=== PATIENT | female | born 1980 | race African-American/Black ===

== ENCOUNTER 2019-06-26 13:36 | Emergency (ER) | payer OTHER ==
[2019-06-26] MEDS ORDERED: CYCLOBENZAPRINE 10 MG TABLET PO STA (14:06)
[2019-06-26] MEDS ORDERED: HYDROcod/ACETAM 5/325 MG TABLET PO STA (14:06)
--- NOTE | 2019-06-26 14:08 | ED Physician Documentation ---
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 She is had progressive right-sided neck and shoulder pain then severe. No actual fall. 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 - Present Medications Home Medications: Ambulatory Orders Medication Instructions Recorded Confirmed Cyclobenzaprine [Flexeril] 10 mg PO TID PRN #20 tablet 06/26/19 Hydrocodone/Acetaminophen 1 - 2 each PO Q6H PRN #14 tablet 06/26/19 [Hydrocodon-Acetaminophen 5-325] - Allergies Allergies/Adverse Reactions: Allergies Allergy/AdvReac Type Severity Reaction Status Date / Time Penicillins Allergy Unknown Verified 06/26/19 13:57 promethazine [From Phenergan] Allergy Unknown Verified 06/26/19 13:57 codeine AdvReac Unknown Verified 06/26/19 13:57 latex AdvReac Unknown Verified 06/26/19 13:57 - Social History Does the pt smoke?: No Smoking Status: Never smoker ETOH Use: Wine - Immunizations Immunizations are current?: Yes PD ED PE NORMAL - Vitals Vital signs reviewed: Yes - General General: Alert and oriented X 3, No acute distress - HEENT HEENT: PERRL, EOMI - Neck Neck: No bony TTP, Other (She is holding the neck kind of rotated and is tender over the sternocleidomastoid and posterior shoulder musculature on the right.) - Extremities Extremities: Other (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 Symmetric sensation throughout the upper extremities.) - Neuro Neuro: Alert and oriented X 3, Normal speech Results - Vitals Vitals: Vital Signs - 24 hr 06/26/19 13:47 Temperature 37.0 C Heart Rate 101 H Respiratory 18 Rate Blood Pressure 133/94 H O2 Saturation 100 Oxygen O2 Source Room air PD MEDICAL DECISION MAKING - ED course ED course: 39-year-old woman with a neck and shoulder spasm. The mechanism is inconsistent with fracture as is the gradual onset. Cervical radiculopathy is considered given her history of same, but her cervical radiculopathy previously was on the other side, and she has no neurologic symptoms. Departure - Departure Disposition: Home, Self Care Clinical Impression: Muscle spasm of right shoulder, Neck muscle spasm Right shoulder strain Qualifiers: Encounter type: initial encounter Qualified Code(s): S46.911A - Strain of unspecified muscle, fascia and tendon at shoulder and upper arm level, right arm, initial encounter Condition: Good Record reviewed to determine appropriate education?: Yes Instructions: ED Spasm Muscle Prescriptions: Cyclobenzaprine [Flexeril] 10 mg PO TID PRN #20 tablet PRN Reason: Spasms Hydrocodone/Acetaminophen [Hydrocodon-Acetaminophen 5-325] 1 - 2 each PO Q6H PRN #14 tablet PRN Reason: pain Comments: Given the mechanism and the gradual onset this is consistent with a spasm of muscle, which we are treating you for. Return for new or worsening symptoms. Follow-up with your doctor as you are already planning to do. Forms: Activity restrictions
[2019-06-26 14:37] VITALS: BP 127/93
== END 2019-06-26 14:37 | disposition home or self-care (01) ==
LOC: ED 13:36
DX: M62.838 Other muscle spasm (principal); S46.911A Strain of unspecified muscle, fascia and tendon at shoulder and upper arm level, right arm, initial encounter; X58.XXXA Exposure to other specified factors, initial encounter; Y93.89 Activity, other specified; Y92.210 Daycare center as the place of occurrence of the external cause; Y99.0 Civilian activity done for income or pay
CPT/HCPCS: 99282; 99284; A9270

== ENCOUNTER 2019-07-22 13:41 | Emergency (ER) | payer OTHER ==
--- NOTE | 2019-07-22 14:58 | ED Physician Documentation ---
PD HPI BACK PAIN - Stated complaint Stated Complaint: BACK PX - Chief complaint Chief Complaint: Back Pain - History obtained from History obtained from: Patient - History of Present Illness Timing - onset: How many days ago (2-3 days of pain in mid to lower neck and upper thoracic area, with numbness today along lateral arms both sides. Has had prior neck surgery C5-6 and has some HNP of mid cervical discs on prior MRIs. Moved here recently and is getting aligned with neck specialist here, through PCP. and is having MRI cervical early August, already scheduled. Denies weakness of arms/hands.) Timing - details: Gradual onset, Still present, Waxing and waning Location: Upper (upper thoracic and then the cervical area pain.) Quality: Pain, Spasm, Aching Associated symptoms: Numbness (middle fingers right more than left, and had that with prior neck surgery, did not fully resolve. Is worse now though.). No: Fever, Weakness Contributing factors: Lifting Similar symptoms before: Diagnosis (prior neck HNPs with surgery C5-6 about a year ago, while stationed in [facility].) Recently seen: Clinic (seen by PCP recently with Rx Elisabet. 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 - Present Medications Home Medications: Ambulatory Orders Medication Instructions Recorded Confirmed Cyclobenzaprine [Flexeril] 10 mg PO TID PRN #20 tablet 06/26/19 Hydrocodone/Acetaminophen 1 - 2 each PO Q6H PRN #14 tablet 06/26/19 [Hydrocodon-Acetaminophen 5-325] Gabapentin 100 mg PO BID #30 capsule 07/22/19 Naproxen 500 mg PO BID #20 tablet 07/22/19 Oxycodone HCl/Acetaminophen 1 each PO Q6H PRN #20 tablet 07/22/19 [Percocet 5-325 mg Tablet] Tizanidine HCl 4 mg PO TID PRN #25 capsule 07/22/19 dexAMETHasone [Decadron] 4 mg PO DAILY #5 tablet 07/22/19 - Allergies Allergies/Adverse Reactions: Allergies Allergy/AdvReac Type Severity Reaction Status Date / Time Penicillins Allergy Unknown Verified 07/22/19 13:49 promethazine [From Phenergan] Allergy Unknown Verified 07/22/19 13:49 codeine AdvReac Unknown Verified 07/22/19 13:49 latex AdvReac Unknown Verified 07/22/19 13:49 - Social History Does the pt smoke?: No Smoking Status: Never smoker - Immunizations Immunizations are current?: Yes PD ED PE NORMAL - Vitals Vital signs reviewed: Yes - General General: Alert and oriented X 3, Well developed/nourished, Other (appears in significant pain) - Neck Neck: Supple, no meningeal sign, No adenopathy, Other (pain with some muscular tenderness in lower neck and some to upper thoracic paraspinal muscles. No rash nor sores. ) - Derm Derm: Normal color, Warm and dry, No rash - Neuro Neuro: Alert and oriented X 3, No motor deficit, Normal speech, Other (some decreased sensation to touch/sharp in lateral forearm and middle fingers right. ) Results - Vitals Vitals: Vital Signs - 24 hr 07/22/19 07/22/19 13:49 16:50 Temperature 36.7 C Heart Rate 76 72 Respiratory 20 14 Rate Blood Pressure 135/110 H 134/85 H O2 Saturation 97 98 Oxygen O2 Source Room air PD MEDICAL DECISION MAKING - ED course Complexity details: reviewed results (did not see value in plain imaging. She is scheduled for MRI neck in couple weeks. I do not see urgency in sooner at this time. ), re-evaluated patient (improved pain with IM meds. ), considered differential, d/w patient Departure - Departure Disposition: 01 Home, Self Care Clinical Impression: Neck pain, Cervical radiculitis Condition: Stable Record reviewed to determine appropriate education?: Yes Instructions: ED Cervical Radiculopathy Follow-Up: SATHISH TRINH [Primary Care Provider] - Prescriptions: dexAMETHasone [Decadron] 4 mg PO DAILY #5 tablet Gabapentin 100 mg PO BID #30 capsule Naproxen 500 mg PO BID #20 tablet Oxycodone HCl/Acetaminophen [Percocet 5-325 mg Tablet] 1 each PO Q6H PRN #20 tablet PRN Reason: pain Tizanidine HCl 4 mg PO TID PRN #25 capsule PRN Reason: Spasms Comments: Follow-up with your primary care. Continue with the plans for the MRI of the neck and neck specialist referral. Use anti-inflammatory of naproxen twice daily with food. Also Decadron steroid anti-inflammatory daily for 5 more days. Tizanidine muscle relaxant for spasms and stiffness as prescribed. Add Tylenol or oxycodone as needed for worse pain. Use mild stool softener so you do not get constipated with these. You could also start gabapentin (Neurontin) once or twice daily at a very low dose to try to help with some of the nerve pain. Discharge Date/Time: 07/22/19 17:35
[2019-07-22] MEDS ORDERED: HYDROmorphone 2 MG/ML VIAL IM STA (15:27)
[2019-07-22] MEDS ORDERED: CHERRY SYRUP 10 ML UDC PO ONE (15:27)
[2019-07-22] MEDS ORDERED: KETOROLAC 60 MG/2 ML VIAL IM STA (15:27)
[2019-07-22] MEDS ORDERED: DEXAMETHASONE 10 MG/ML VIAL PO STA (15:27)
[2019-07-22] MEDS ORDERED: methocarbamoL 500 MG TABLET PO STA (15:28)
[2019-07-22 16:50] VITALS: BP 134/85
== END 2019-07-22 17:35 | disposition home or self-care (01) ==
LOC: ED 13:41
DX: M54.2 Cervicalgia (principal); M54.12 Radiculopathy, cervical region
CPT/HCPCS: 96372; 99283; A9270; J1170

== ENCOUNTER 2019-08-04 08:47 | Outpatient (CLI) | payer OTHER ==
--- NOTE | 2019-08-04 10:42 | MRI Report ---
Reason: CERVICALGIA Procedure Date: 08/04/2019 Accession Number: [id number] / [id number] Procedure: MRI - Cervical Spine W/O CPT Code: Final Report FULL RESULT: EXAM: MRI CERVICAL SPINE WITHOUT CONTRAST EXAM DATE: 08/04/2019 09:27 AM. CLINICAL HISTORY: Cervicalgia. COMPARISONS: None. TECHNIQUE: Multiplanar, multisequence T1-weighted and fluid-sensitive sequences of the cervical spine without contrast. Other: None. FINDINGS: Neurologic Structures: The visualized posterior fossa structures are unremarkable. No signal abnormality in the visualized spinal cord. Alignment: No scoliosis or spondylolisthesis. Bone Marrow: No fractures or erosive changes. Metallic artifact seen from anterior instrument fusion at C5-C6. Interspace Levels/Facets: C1-C2: Arthritic changes are mild anteriorly. No stenosis. C2-C3: Unremarkable. C3-C4: Unremarkable. C4-C5: Mild broad-based disk bulge, no central or foraminal stenosis. There are slightly prominent facets. C5-C6: Surgery at this level. Mild central stenosis. Artifact from anterior compression plate. AP diameter of the canal is 7 mm. Severe left foraminal stenosis. Right neural foramen is normal. Series 801 image 17. C6-C7: Broad-based disk bulge is seen. Prominent facets. No central or foraminal stenosis. C7-T1: Unremarkable. Musculature: Normal. No edema or fatty atrophy. Other: The paravertebral and prevertebral soft tissues are normal. IMPRESSION: 1. Spinal cord and posterior fossa appear unremarkable. 2. C4-C5 shows a mild broad-based bulge, no central or foraminal stenosis. Slightly prominent facets. 3. C5-C6 shows surgery at this level with mild central stenosis. Metallic artifact anteriorly. Severe left foraminal stenosis. Moderate central stenosis. Right neural foramen is normal. 4. C6-C7 shows a broad-based disk bulge, prominent facets. No central or foraminal stenosis. RADIA
== END 2019-08-04 08:48 | disposition home or self-care (01) ==
LOC: DI 08:47
PROVIDERS: ATTEND Family Medicine
DX: M47.812 Spondylosis without myelopathy or radiculopathy, cervical region (principal); M48.02 Spinal stenosis, cervical region; Z98.1 Arthrodesis status; M50.821 Other cervical disc disorders at C4-C5 level
CPT/HCPCS: 72141

== ENCOUNTER 2020-07-15 10:28 | Outpatient (CLI) | payer OTHER ==
[2020-07-15] MEDS ORDERED: GADOBUTROL 15 MMOL/15 ML VIAL ONE (11:03)
[2020-07-15] MEDS ORDERED: GADOBUTROL 15 MMOL/15 ML VIAL IVP ONE (11:47)
--- NOTE | 2020-07-15 11:59 | MRI Report ---
PROCEDURE: Brain W/WO INDICATIONS: SPASMODIC TORTICOLLIS, ATAXIA CONTRAST: IV CONTRAST: Gadavist ml: 12 TECHNIQUE: Noncontrast axial T1 spin echo, axial T2 fast spin echo, sagittal and axial FLAIR, coronal T2 fast sp in echo, axial gradient echo, axial diffusion and ADC through the brain. After the administration of contrast, axial and coronal T1 spin echo with fat saturation through the brain. COMPARISON: None. FINDINGS: Image quality: Excellent. CSF spaces: Basal cisterns are patent. No extra-axial fluid collections. Ventricles are normal in size and shape. Brain: No midline shift. No intracranial bleeds or masses. No abnormal intracranial enhancement. There is cerebral volume loss for age. There is periventricular white matter chronic small vessel is chemic change. The brainstem appears normal. Diffusion-weighted images demonstrate no acute ischemi c insults. No chronic ischemic insults. Normal intravascular flow voids are present. Skull and face: Calvarial marrow is normal in signal. Orbits appear normal. Sinuses: Sinuses and mastoids appear clear. IMPRESSION: No acute or otherwise significant intracranial abnormality. Reviewed by: Thaddeus Gordillo MD on 07/15/2020 10:57 AM [facility] Approved by: Thaddeus Gordillo MD on 07/15/2020 10:57 AM [facility] Station ID: [id number]
== END 2020-07-15 10:29 | disposition home or self-care (01) ==
LOC: DI 10:28
PROVIDERS: ATTEND Student in an Organized Health Care Education/Training Program
DX: G24.3 Spasmodic torticollis (principal); R27.0 Ataxia, unspecified
CPT/HCPCS: 70553; A9585

== ENCOUNTER 2020-10-10 10:55 | Emergency (ER) | payer OTHER ==
[2020-10-10 11:50] LABS: BASOPHILS % (AUTO) 0.5 %; EOSINOPHILS # (AUTO) 0.1 10^3/uL (0.0-0.7); HCT - HEMATOCRIT 40.3 % (37.0-47.0); HGB - HEMOGLOBIN 13.3 g/dL (12.0-16.0); LYMPHOCYTES % (AUTO) 34.1 %; MEAN CORPUSCULAR HEMOGLOBIN 29.3 pg (27.0-31.0); MEAN CORPUSCULAR VOLUME 88.8 fL (81.0-99.0); MEAN PLATELET VOLUME 9.1 fL (7.9-10.8); MONOCYTES # (AUTO) 0.4 10^3/uL (0.0-1.0); NEUTROPHILS # (AUTO) 3.4 10^3/uL (1.5-6.6); NEUTROPHILS % (AUTO) 57.2 %; PLT - PLATELET COUNT 307 10^3/uL (130-450); RED BLOOD COUNT 4.54 10^6/uL (4.20-5.40); RED CELL DISTRIBUTION WIDTH 13.1 % (12.0-15.0)
[2020-10-10 12:04] LABS: ACETAMINOPHEN < 10 ug/mL (10-30); ALBUMIN 4.3 g/dL (3.2-5.5); ALBUMIN/GLOBULIN RATIO 1.2 (1.0-2.2); ALKALINE PHOSPHATASE 71 IU/L (42-121); ALT ALANINE AMINOTRANSFERASE 11 IU/L (10-60); AST ASPARTATE AMINOTRANSFERASE 20 IU/L (10-42); BILIRUBIN,TOTAL 0.8 mg/dL (0.2-1.0); BUN - BLOOD UREA NITROGEN 8 mg/dL (6-20); CALCIUM 9.4 mg/dL (8.5-10.3); CARBON DIOXIDE - CO2 27 mmol/L (21-32); CHLORIDE 104 mmol/L (101-111); ETOH - ETHANOL < 5.0 mg/dL; GFR - MDRD 75 (>89); GLUCOSE 106 mg/dL (70-100); LIPASE 18 U/L (22-51); POTASSIUM 4.7 mmol/L (3.5-5.0); SALICYLATE < 6.0 mg/dL; SODIUM 139 mmol/L (135-145); TOTAL PROTEIN 7.9 g/dL (6.7-8.2)
[2020-10-10] MEDS ORDERED: HYDROmorphone 1 MG/ML CARPUJECT IM STA (12:12)
--- NOTE | 2020-10-10 12:27 | ED Physician Documentation ---
History of Present Illness - Stated complaint Stated Complaint: MHE - Chief complaint Chief Complaint: MHE - Additonal information Additional information: 40-year-old female is brought to the emergency department for evaluation of suicidal ideation. She unfortunately has a longstanding history of chronic back neck and head pain after an accident in [place] many years ago that required surgical operation as well as plating. The patient had expressed to her that she wanted to take all her pills to end her life because she can no longer tolerate her chronic pain. In the room the patient is in a wheelchair. 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 She cries constantly asking this provider to end her life. She states she can no longer continue to be in pain. She states that even her legs hurt and her skin hurts when touched. She does report that she has attempted to take her pills in attempt to end her life in the past. Patient controls her pain medication. She does live with her in [place]. In brief conversation with her on the phone he endorsed to me that the patient does speak of ending her life through overdose. He is hesitant to discuss her past history that he thinks may be hunting her and contributing to her suicidal ideation. 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 Review of Systems Constitutional: denies: Fever, Chills Eyes: reports: Reviewed and negative Ears: reports: Reviewed and negative Throat: reports: Reviewed and negative Cardiac: reports: Reviewed and negative GI: reports: Reviewed and negative : denies: Dysuria, Frequency Skin: reports: Abrasion (s). denies: Rash, Lesions Musculoskeletal: reports: Back pain, Other (chronic back pain) Neurologic: reports: Reviewed and negative Psychiatric: reports: Depressed, Suicidal. 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 - Present Medications Home Medications: Ambulatory Orders Medication Instructions Recorded Confirmed Tizanidine HCl 4 mg PO TID PRN #25 capsule 02/19/20 05/10/21 Carbidopa/Levodopa/Entacapone 1 tape PO TID 10/10/20 10/10/20 [Carbidopa-Levodopa 100 mg-Enta] DULoxetine [Cymbalta] 60 mg PO DAILY 10/10/20 10/10/20 Famotidine [Pepcid] 1 tab PO DAILY 10/10/20 10/10/20 Gabapentin 300 mg PO TID 10/10/20 10/10/20 - Allergies Allergies/Adverse Reactions: Allergies Allergy/AdvReac Type Severity Reaction Status Date / Time Penicillins Allergy Unknown Verified 10/10/20 11:10 promethazine [From Phenergan] Allergy Unknown Verified 10/10/20 11:10 codeine AdvReac Unknown Verified 10/10/20 11:10 latex AdvReac Unknown Verified 10/10/20 11:10 - Social History Does the pt smoke?: No Smoking Status: Never smoker Does the pt drink ETOH?: No - Immunizations Immunizations are current?: Yes - POLST Patient has POLST: No PD ED PE EXPANDED - General General: Alert, In Pain, In distress, Other (sitting in wheelchair) - Neck Neck: Soft tissue TTP, Limited ROM, Other (head left in tilted position) - Cardiac Cardiac: Regular Rate, Radial strong equal - Respiratory Respiratory: Clear to ausultation ba. No: Distress, Labored - Abdomen Abdomen: Normal Bowel sounds. No: Tender to palpation - Neuro Neuro: Alert and Oriented X 3, CNII-XII intact - GCS Eye Opening: Spontaneous Motor: Obeys Commands Verbal: Oriented Total: 15 - Psych Psych: Depressed, Suicidal, Tearful Results - Vitals Vitals: Vital Signs - 24 hr 10/10/20 10/10/20 10/10/20 11:05 12:30 13:30 Temperature 36.0 C L Heart Rate 86 81 83 Respiratory 20 18 16 Rate Blood Pressure 179/104 H 167/101 H 159/115 H O2 Saturation 100 99 99 10/10/20 10/10/20 14:00 14:30 Temperature Heart Rate 74 83 Respiratory 19 16 Rate Blood Pressure 118/85 H 120/88 H O2 Saturation 99 98 Oxygen O2 Source Room air - Labs Labs: Laboratory Tests 10/10/20 10/10/20 10/10/20 11:40 11:40 11:40 WBC 6.0 RBC 4.54 Hgb 13.3 Hct 40.3 MCV 88.8 MCH 29.3 MCHC 33.0 RDW 13.1 Plt Count 307 MPV 9.1 Neut # (Auto) 3.4 Lymph # (Auto) 2.0 [place] # (Auto) 0.4 Eos # (Auto) 0.1 Baso # (Auto) 0.0 Absolute Nucleated RBC 0.00 Nucleated RBC % 0.0 Sodium 139 Potassium 4.7 Chloride 104 Carbon Dioxide 27 Anion Gap 8.0 BUN 8 Creatinine 1.0 Estimated GFR (MDRD) 75 L Glucose 106 H Calcium 9.4 Total Bilirubin 0.8 AST 20 ALT 11 Alkaline Phosphatase 71 Total Protein 7.9 Albumin 4.3 Globulin 3.6 Albumin/Globulin Ratio 1.2 Lipase 18 L TSH 0.39 Urine Color Urine Clarity Urine pH Ur Specific [place] Urine Protein Urine Glucose (UA) Urine Ketones Urine Occult Blood Urine Nitrite Urine Bilirubin Urine Urobilinogen Ur Leukocyte Esterase Urine RBC Urine WBC Ur Squamous Epith Cells Urine Crystals Urine Bacteria Urine Mucus Ur Microscopic Review Urine Culture Comments Urine HCG, Qual Salicylates < 6.0 Urine Opiates Screen Ur Oxycodone Screen Urine Methadone Screen Ur Propoxyphene Screen Acetaminophen < 10 L Ur Barbiturates Screen Ur Tricyclics Screen Ur Phencyclidine Scrn Ur Amphetamine Screen U Methamphetamines Scrn U Benzodiazepines Scrn Urine Cocaine Screen U Cannabinoids Screen Ethyl Alcohol < 5.0 10/10/20 12:30 WBC RBC Hgb Hct MCV MCH MCHC RDW Plt Count MPV Neut # (Auto) Lymph # (Auto) [place] # (Auto) Eos # (Auto) Baso # (Auto) Absolute Nucleated RBC Nucleated RBC % Sodium Potassium Chloride Carbon Dioxide Anion Gap BUN Creatinine Estimated GFR (MDRD) Glucose Calcium Total Bilirubin AST ALT Alkaline Phosphatase Total Protein Albumin Globulin Albumin/Globulin Ratio Lipase TSH Urine Color YELLOW Urine Clarity HAZY Urine pH 6.0 Ur Specific [place] 1.025 Urine Protein NEGATIVE Urine Glucose (UA) NEGATIVE Urine Ketones NEGATIVE Urine Occult Blood TRACE-INTA Urine Nitrite POSITIVE H Urine Bilirubin NEGATIVE Urine Urobilinogen 0.2 (NORMAL) Ur Leukocyte Esterase SMALL H Urine RBC 6-10 H Urine WBC >25 H Ur Squamous Epith Cells MANY Squamous H Urine Crystals 3-5 Calcium Oxalate Urine Bacteria Many H Urine Mucus Marked Strands Ur Microscopic Review INDICATED Urine Culture Comments NOT INDICATED Urine HCG, Qual NEGATIVE Salicylates Urine Opiates Screen NEGATIVE Ur Oxycodone Screen NEGATIVE Urine Methadone Screen NEGATIVE Ur Propoxyphene Screen NEGATIVE Acetaminophen Ur Barbiturates Screen NEGATIVE Ur Tricyclics Screen NEGATIVE Ur Phencyclidine Scrn NEGATIVE Ur Amphetamine Screen NEGATIVE U Methamphetamines Scrn NEGATIVE U Benzodiazepines Scrn NEGATIVE Urine Cocaine Screen NEGATIVE U Cannabinoids Screen POSITIVE H Ethyl Alcohol PD MEDICAL DECISION MAKING - ED course Complexity details: reviewed results, re-evaluated patient, d/w patient ED course: 40-year-old female who has a history of chronic pain secondary to an accident 2 years ago in [facility] is now left with limited mobility persistent pain despite many visits to both neurology and primary care doctor. She expresses hopelessness and thoughts of suicide by taking her own pills. Once medically cleared she was seen by our social service coordinator who did an extensive chart review as well as conversation with her . At this time the will take control of her medications and dispense them as necessary. We are also working to get the patient in for talk therapy which may go a long way in helping alleviate her symptoms of depression and hopelessness. She is going to continue to follow-up with neurology and request a pain management doctor specifically by her primary care provider. Finally she is going to schedule close follow-up with her primary care doctor to discuss changing her antidepressive medications. I have reevaluated the patient and though she remains in pain she feels somewhat more hopeful knowing that there is a plan moving forward. I expressed that if she ever had thoughts of hopelessness or suicide again she is to return immediately to the emergency department. Departure - Departure Disposition: 01 Home, Self Care Clinical Impression: Chronic pain syndrome Depression Qualifiers: Depression Type: major depressive disorder Major depression recurrence: recurrent Active/Remission status: currently active Major depression episode severity: severe Psychotic features: without psychotic features Qualified Code(s): F33.2 - Major depressive disorder, recurrent severe without psychotic f eatures Condition: Stable Record reviewed to determine appropriate education?: Yes Comments: Aliya I want to wish you luck as you move forward. I think they are going to be a few things it will help you. 1. Please request your primary doctor to resend you to a pain management doctor. These are different than neurologists and can be very helpful in managing long-term symptoms such as yours. 2. Getting started with talk therapy can help you discuss your feelings of isolation and depression and loss of mobility. 3. Your will take control of your medications and dispense them to you as necessary. 4. You should invest in a caregiver to help you with your tasks at home. Loss of independence is very very frustrating. If at any point you feel that your hopelessness is worsening you have thoughts of self-harm please return immediately to the emergency department.
[2020-10-10 12:52] LABS: MUDS CUTOFF CONCENTRATIONS CUTOFF CONC BELOW:
[2020-10-10 12:55] LABS: BILIRUBIN,URINE NEGATIVE (NEGATIVE); GLUCOSE, URINE (UA) NEGATIVE (NEGATIVE); KETONES,URINE (UA) NEGATIVE (NEGATIVE); LEUKOCYTE ESTERASE, URINE SMALL (NEGATIVE); NITRITE,URINE POSITIVE (NEGATIVE); OCCULT BLOOD,URINE TRACE-INTA (NEGATIVE); PROTEIN,URINE NEGATIVE (NEGATIVE); UROBILINOGEN,URINE 0.2 (NORMAL) E.U./dL (NORMAL)
[2020-10-10 12:57] LABS: CLARITY,URINE HAZY (CLEAR); HCG UR QUAL NEGATIVE
[2020-10-10 13:08] LABS: AMPHETAMINE SCREEN,URINE NEGATIVE (NEGATIVE); BARBITURATE SCREEN,UR NEGATIVE (NEGATIVE); BENZODIAZEPINES SCREEN, URINE NEGATIVE (NEGATIVE); COCAINE SCREEN URINE NEGATIVE (NEGATIVE); METHADONE SCREEN, URINE NEGATIVE (NEGATIVE); METHAMPHETAMINES SCREEN, URINE NEGATIVE (NEGATIVE); OPIATE SCREEN, URINE NEGATIVE (NEGATIVE); OXYCODONE SCREEN, URINE NEGATIVE (NEGATIVE); PROPOXYPHENE SCREEN, URINE NEGATIVE (NEGATIVE); THC CANNABINOID SCREEN, URINE POSITIVE (NEGATIVE); TRICYCLIC ANTIDEPRESSANT,URINE NEGATIVE (NEGATIVE)
[2020-10-10 13:22] LABS: BACTERIA,URINE Many /HPF (None Seen); SQUAMOUS EPITHELIAL CELL,UR MANY Squamous (<= Few); WBC,URINE >25 /HPF (0-5)
[2020-10-10 13:23] LABS: CRYSTALS,URINE 3-5 Calcium Oxalate /LPF; MUCUS,URINE Marked Strands
[2020-10-10 14:36] VITALS: BP 120/88
== END 2020-10-10 15:51 | disposition home or self-care (01) ==
LOC: ED 10:55
DX: R45.851 Suicidal ideations (principal); G89.4 Chronic pain syndrome; F33.2 Major depressive disorder, recurrent severe without psychotic features; M54.9 Dorsalgia, unspecified; M54.2 Cervicalgia; R51.9 Headache, unspecified; Z87.828 Personal history of other (healed) physical injury and trauma; Z98.890 Other specified postprocedural states
CPT/HCPCS: 36415; 80053; 80306; 80307; 80320; 80329; 81001; 81025; 83690; 84443; 85025; 96374; 99282; 99283; J1170; 81003; 87086